=== PATIENT | female | born 1965 | race African-American/Black ===

== ENCOUNTER 2018-12-05 19:06 | Inpatient (IN) | payer MEDICARE, MEDICAID ==
[~2018-12-05] VITALS: Ht 172.7 cm; Wt 78.0 kg
[2018-12-05] MEDS ORDERED: DIVA250T4 PO (19:30)
[2018-12-05] MEDS ORDERED: LOXA50CA PO ×3 (19:30)
[2018-12-05] MEDS ORDERED: AMLO10TA7 PO (19:30)
[2018-12-05] MEDS ORDERED: BENZ1TAB7 PO (19:30)
[2018-12-05 19:35] LABS: BASOPHILS # (AUTO) 0.1 K/uL (0.0-8.0); EOSINOPHILS # (AUTO) 0.1 K/uL (0.0-0.7); EOSINOPHILS % (AUTO) 1.1 % (0.0-7.0); HEMATOCRIT 40.2 % (31.2-41.9); HEMOGLOBIN 13.4 g/dL (10.9-14.3); LYMPHOCYTES % (AUTO) 33.6 % (20.5-51.5); MEAN CORPUSCULAR HEMOGLOBIN 30.8 uug (24.7-32.8); MEAN CORPUSCULAR HGB CONC 33 g/dL (32.3-35.6); MEAN CORPUSCULAR VOLUME 92.6 fL (75.5-95.3); MONOCYTES # (AUTO) 0.7 K/uL (2.0-10.0); MONOCYTES % (AUTO) 7.7 % (0.0-11.0); NEUTROPHILS # (AUTO) 5.1 K/uL (1.8-8.9); NEUTROPHILS % (AUTO) 56.6 % (38.5-71.5); PLATELET COUNT (AUTO) 231 K/uL (179-408); RED BLOOD CELL COUNT(AUTO) 4.34 MIL/uL (3.63-4.92)
[2018-12-05 19:42] LABS: CARBON DIOXIDE 28 mmol/L (21-32); CHLORIDE 104 mmol/L (98-107); CREATININE 0.7 mg/dL (0.6-1.3); GLUCOSE 99 mg/dL (74-106); UREA NITROGEN, BLOOD 13 mg/dL (7-18)
[2018-12-05 19:48] LABS: ACETAMINOPHEN < 2.0 ug/mL (10-30); ALANINE AMINOTRANSFERASE 16 U/L (14-59); ALKALINE PHOSPHATASE 78 U/L (50-136); ASPARTATE AMINOTRANSFERASE 12 U/L (15-37); BILIRUBIN,DIRECT 0.1 mg/dL (0.0-0.2); BILIRUBIN,TOTAL 0.4 mg/dL (0.2-1.0); TOTAL PROTEIN, SERUM 7.8 g/dL (6.4-8.2)
[2018-12-05 19:51] LABS: ETHANOL < 3 MG/DL (0-0)
[2018-12-05] MEDS ORDERED: OLANZAPINE 5 MG TABLET ONE (19:52)
[2018-12-05] MEDS ORDERED: OLANZAPINE 10 MG VIAL IM ONE ×2 (19:57→20:00)
[2018-12-05] MEDS ORDERED: OLANZAPINE 5 MG TABLET PO ONE (20:00)
[2018-12-05 21:06] LABS: *BILIRUBIN,URIN NEGATIVE (NEGATIVE); *BLOOD, URINE NEGATIVE (NEGATIVE); *CLARITY,URINE CLEAR (CLEAR); *COLOR,URINE YELLOW (YELLOW); *KETONES,URINE TRACE (NEGATIVE); *UROBILINOGEN,URINE 0.2 E.U./dl (NORMAL); LEUKOCYTE ESTERASE ,URINE NEGATIVE (NEGATIVE); NITRITE, URINE NEGATIVE (NEGATIVE); UGLUCOSE NEGATIVE (NEGATIVE)
[2018-12-05 21:17] LABS: *AMPHETAMINE, URINE NEGATIVE (NEGATIVE); *BARBITURATE, URINE NEGATIVE (NEGATIVE); *CANNABINOID, URINE NEGATIVE (NEGATIVE); *COCCAINE, URINE NEGATIVE (NEGATIVE); *OPIATE, URINE NEGATIVE (NEGATIVE); *PHENCYCLIDINE SCREEN,URINE NEGATIVE (NEGATIVE); SQUAMOUS EPITHELIAL CELL,UR FEW /HPF (NONE SEEN); WBC,URINE 0-3 /HPF (0-3)
[2018-12-05 22:20] VITALS: BP 137/85
[2018-12-05] MEDS ORDERED: TEMAZEPAM 7.5 MG CAPSULE PO PRN (22:30)
[2018-12-05] MEDS ORDERED: MAG HYDROX/AL HYDROX/SIMETH 30 ML LIQUID UDC PO PRN (22:30)
[2018-12-05] MEDS ORDERED: MAGNESIUM HYDROXIDE 30 ML LIQUID UDC PO PRN (22:30)
[2018-12-05] MEDS: LORAZEPAM 0.5 MG TABLET PO PRN (22:38)
[2018-12-06 07:30] VITALS: BP 143/71
[2018-12-06] MEDS: AMLODIPINE 10 MG TABLET PO SCH (11:04)
[2018-12-06] MEDS: BENZTROPINE MESYLATE 0.5 MG TABLET PO SCH ×2 (12:59→20:05)
[2018-12-06] MEDS: DIVALPROEX 250 MG TABLET.DR PO SCH ×2 (12:59→16:49)
[2018-12-06] MEDS: risperiDONE-M 0.5 MG TAB.RAPDIS PO SCH ×2 (12:59→20:05)
[2018-12-06 16:24] VITALS: BP 126/71
[2018-12-06] MEDS: ATORVASTATIN 10 MG TABLET PO SCH (20:05)
[2018-12-06 20:35] VITALS: BP 141/71
[2018-12-06] MEDS: TEMAZEPAM 7.5 MG CAPSULE PO PRN (22:42)
[2018-12-07 07:30] VITALS: BP 120/59
[2018-12-07] MEDS: DIVALPROEX 250 MG TABLET.DR PO SCH ×3 (09:14→16:47)
[2018-12-07] MEDS: AMLODIPINE 10 MG TABLET PO SCH (09:15)
[2018-12-07] MEDS: risperiDONE-M 0.5 MG TAB.RAPDIS PO SCH ×2 (09:16→20:28)
[2018-12-07] MEDS: BENZTROPINE MESYLATE 0.5 MG TABLET PO SCH ×2 (09:25→20:29)
[2018-12-07 15:29] VITALS: BP 155/65
[2018-12-07] MEDS: NICOTINE 14 MG/24HR PATCH TD SCH (16:47)
[2018-12-07 20:00] VITALS: BP 131/56
[2018-12-07] MEDS: ATORVASTATIN 10 MG TABLET PO SCH (20:28)
[2018-12-08 07:57] VITALS: BP 151/75
[2018-12-08] MEDS: NICOTINE 14 MG/24HR PATCH TD SCH ×2 (09:00→09:22)
[2018-12-08] MEDS: risperiDONE-M 0.5 MG TAB.RAPDIS PO SCH ×3 (09:20→21:08)
[2018-12-08] MEDS: AMLODIPINE 10 MG TABLET PO SCH (09:21)
[2018-12-08] MEDS: DIVALPROEX 250 MG TABLET.DR PO SCH ×3 (09:22→18:27)
[2018-12-08] MEDS: BENZTROPINE MESYLATE 0.5 MG TABLET PO SCH ×2 (09:26→21:09)
[2018-12-08 16:42] VITALS: BP 143/68
[2018-12-08 20:30] VITALS: BP 140/54
[2018-12-08] MEDS: TEMAZEPAM 7.5 MG CAPSULE PO PRN (21:09)
[2018-12-08] MEDS: ATORVASTATIN 10 MG TABLET PO SCH (21:09)
[2018-12-09 07:30] VITALS: BP 124/63
[2018-12-09] MEDS: DIVALPROEX 250 MG TABLET.DR PO SCH ×2 (09:17→13:40)
[2018-12-09] MEDS: BENZTROPINE MESYLATE 0.5 MG TABLET PO SCH ×2 (09:18→21:09)
[2018-12-09] MEDS: NICOTINE 14 MG/24HR PATCH TD SCH (09:18)
[2018-12-09] MEDS: AMLODIPINE 10 MG TABLET PO SCH (09:18)
[2018-12-09] MEDS: risperiDONE-M 0.5 MG TAB.RAPDIS PO SCH ×3 (09:20→21:09)
[2018-12-09] MEDS ORDERED: DIVALPROEX 250 MG TABLET.DR PO SCH (15:30)
[2018-12-09 16:00] VITALS: BP 111/81
[2018-12-09] MEDS: DIVALPROEX 500 MG TABLET.DR PO SCH (16:34)
[2018-12-09] MEDS: LORAZEPAM 0.5 MG TABLET PO PRN (16:35)
[2018-12-09 20:57] VITALS: BP 130/70
[2018-12-09] MEDS: ATORVASTATIN 10 MG TABLET PO SCH (21:09)
[2018-12-09] MEDS: TEMAZEPAM 7.5 MG CAPSULE PO PRN (23:36)
[2018-12-09] MEDS: ACETAMINOPHEN 325 MG TABLET PO PRN (23:36)
[2018-12-10] MEDS ORDERED: OLANZAPINE 10 MG VIAL IM STA (08:09)
[2018-12-10] MEDS ORDERED: LORAZEPAM 2 MG/1 ML VIAL IM STA (08:09)
[2018-12-10 08:51] VITALS: BP 138/75
[2018-12-10] MEDS: risperiDONE-M 0.5 MG TAB.RAPDIS PO SCH ×3 (09:28→20:13)
[2018-12-10] MEDS: DIVALPROEX 500 MG TABLET.DR PO SCH ×2 (09:28→16:40)
[2018-12-10] MEDS: NICOTINE 14 MG/24HR PATCH TD SCH (09:29)
[2018-12-10] MEDS: BENZTROPINE MESYLATE 0.5 MG TABLET PO SCH ×2 (09:29→20:13)
[2018-12-10] MEDS: AMLODIPINE 10 MG TABLET PO SCH (09:29)
[2018-12-10 16:00] VITALS: BP 140/88
[2018-12-10] MEDS: ATORVASTATIN 10 MG TABLET PO SCH (20:13)
[2018-12-10 20:41] VITALS: BP 124/69
[2018-12-11 07:50] VITALS: BP_SYST 102; BP_SYST 143; BP_DIAS 50; BP_DIAS 58
[2018-12-11] MEDS: AMLODIPINE 10 MG TABLET PO SCH (08:13)
[2018-12-11] MEDS: BENZTROPINE MESYLATE 0.5 MG TABLET PO SCH ×2 (08:14→21:41)
[2018-12-11] MEDS: DIVALPROEX 500 MG TABLET.DR PO SCH ×2 (08:15→19:15)
[2018-12-11] MEDS: risperiDONE-M 0.5 MG TAB.RAPDIS PO SCH ×3 (08:15→21:43)
[2018-12-11] MEDS: NICOTINE 14 MG/24HR PATCH TD SCH (08:15)
[2018-12-11 15:54] VITALS: BP 134/59
[2018-12-11 19:35] VITALS: BP 151/60
[2018-12-11] MEDS: ACETAMINOPHEN 325 MG TABLET PO PRN (20:19)
[2018-12-11] MEDS: ATORVASTATIN 10 MG TABLET PO SCH (21:42)
[2018-12-12 07:30] VITALS: BP 145/56
[2018-12-12] MEDS: DIVALPROEX 500 MG TABLET.DR PO SCH ×2 (08:22→16:35)
[2018-12-12] MEDS: ACETAMINOPHEN 325 MG TABLET PO PRN (08:22)
[2018-12-12] MEDS: AMLODIPINE 10 MG TABLET PO SCH (08:22)
[2018-12-12] MEDS: BENZTROPINE MESYLATE 0.5 MG TABLET PO SCH ×2 (08:22→20:24)
[2018-12-12] MEDS: risperiDONE-M 0.5 MG TAB.RAPDIS PO SCH ×3 (08:23→20:24)
[2018-12-12] MEDS: NICOTINE 14 MG/24HR PATCH TD SCH (08:27)
[2018-12-12 15:46] VITALS: BP 143/52
[2018-12-12] MEDS: ATORVASTATIN 10 MG TABLET PO SCH (20:24)
[2018-12-12 20:48] VITALS: BP 150/54
[2018-12-12] MEDS: TEMAZEPAM 7.5 MG CAPSULE PO PRN (23:31)
[2018-12-13] MEDS: LORAZEPAM 0.5 MG TABLET PO PRN ×2 (02:05→11:39)
[2018-12-13 07:30] VITALS: BP 137/57
[2018-12-13] MEDS: BENZTROPINE MESYLATE 0.5 MG TABLET PO SCH ×2 (08:25→20:08)
[2018-12-13] MEDS: DIVALPROEX 500 MG TABLET.DR PO SCH ×2 (08:25→17:00)
[2018-12-13] MEDS: risperiDONE-M 0.5 MG TAB.RAPDIS PO SCH ×3 (08:25→20:09)
[2018-12-13] MEDS: ACETAMINOPHEN 325 MG TABLET PO PRN ×2 (08:25→23:35)
[2018-12-13] MEDS: NICOTINE 14 MG/24HR PATCH TD SCH (08:26)
[2018-12-13] MEDS: AMLODIPINE 10 MG TABLET PO SCH (08:26)
[2018-12-13 15:28] VITALS: BP 143/61
[2018-12-13 20:00] VITALS: BP 161/98
[2018-12-13] MEDS: ATORVASTATIN 10 MG TABLET PO SCH (20:08)
[2018-12-13] MEDS: TEMAZEPAM 7.5 MG CAPSULE PO PRN (21:47)
[2018-12-13] MEDS: LORAZEPAM 1 MG TABLET PO PRN (23:36)
[2018-12-14] MEDS: LORAZEPAM 1 MG TABLET PO PRN ×2 (06:40→12:10)
[2018-12-14 07:30] VITALS: BP 129/71
[2018-12-14] MEDS: AMLODIPINE 10 MG TABLET PO SCH (08:24)
[2018-12-14] MEDS: ACETAMINOPHEN 325 MG TABLET PO PRN (08:24)
[2018-12-14] MEDS: risperiDONE-M 0.5 MG TAB.RAPDIS PO SCH ×3 (08:25→20:47)
[2018-12-14] MEDS: NICOTINE 14 MG/24HR PATCH TD SCH (08:25)
[2018-12-14] MEDS: DIVALPROEX 500 MG TABLET.DR PO SCH ×2 (08:25→16:42)
[2018-12-14] MEDS: BENZTROPINE MESYLATE 0.5 MG TABLET PO SCH ×2 (08:25→20:47)
[2018-12-14 15:13] VITALS: BP 112/67
[2018-12-14 20:31] VITALS: BP 148/69
[2018-12-14] MEDS: ATORVASTATIN 10 MG TABLET PO SCH (20:48)
[2018-12-14] MEDS: TEMAZEPAM 7.5 MG CAPSULE PO PRN (21:06)
[2018-12-15] MEDS: ACETAMINOPHEN 325 MG TABLET PO PRN (00:47)
[2018-12-15 07:30] VITALS: BP 137/56
[2018-12-15 08:49] VITALS: BP 137/56
[2018-12-15] MEDS: AMLODIPINE 10 MG TABLET PO SCH (08:49)
[2018-12-15] MEDS: DIVALPROEX 500 MG TABLET.DR PO SCH (08:49)
[2018-12-15] MEDS: NICOTINE 14 MG/24HR PATCH TD SCH ×2 (08:49→08:57)
[2018-12-15] MEDS: risperiDONE-M 0.5 MG TAB.RAPDIS PO SCH ×2 (08:49→12:25)
[2018-12-15] MEDS: BENZTROPINE MESYLATE 0.5 MG TABLET PO SCH (08:49)
== END 2018-12-15 12:45 | DRG 885 ==
LOC: ER 19:13 → GPS 21:44
PROVIDERS: ADMIT Psychiatry & Neurology Psychosomatic Medicine; ATTEND Internal Medicine
DX: F25.0 Schizoaffective disorder, bipolar type (principal); K21.9 Gastro-esophageal reflux disease without esophagitis; J45.909 Unspecified asthma, uncomplicated; Z59.0 Homelessness; Z82.49 Family history of ischemic heart disease and other diseases of the circulatory system; F17.210 Nicotine dependence, cigarettes, uncomplicated; E66.9 Obesity, unspecified; Z68.25 Body mass index [BMI] 25.0-25.9, adult; E78.5 Hyperlipidemia, unspecified; R73.9 Hyperglycemia, unspecified; F19.10 Other psychoactive substance abuse, uncomplicated; I10 Essential (primary) hypertension
CPT/HCPCS: 36415; 80164; 80307; 85025; 93005; A4663; C1758; G0480; G0480-TC; J2060; J2358; J3490